=== PATIENT | female | born 1950 | race African-American/Black ===

== ENCOUNTER 2017-03-28 13:00 | Emergency (ER) | payer MEDICAID, OTHER ==
[~2017-03-28] VITALS: Ht 165.1 cm; Wt 49.9 kg
[~2017-03-28 13:00] MED LIST: AUGMENTIN 875-1 EAC1 ORAL; NKM; TENORMIN25 MG ORAL
[2017-03-28] MEDS ORDERED: Albuterol ud Inhalation HHN ONE (14:00)
[2017-03-28] MEDS ORDERED: PredniSONE 20mg tab ORAL ONE (14:00)
[2017-03-28 14:01] LABS: BASOPHILS % (AUTO) 1.5 % (0.0-2.0); EOSINOPHILS % (AUTO) 5.3 % (0.0-3.0); LYMPHOCYTES % (AUTO) 17.1 % (20.0-45.0); MEAN CORPUSCULAR HGB CONC 30.7 G/DL (32.0-36.0); MEAN CORPUSCULAR VOLUME 88 FL (80-99); MEAN PLATELET VOLUME 8.5 FL (6.5-10.1); MONOCYTES % (AUTO) 11.6 % (1.0-10.0); NEUTROPHILS % (AUTO) 64.6 % (45.0-75.0); PLATELET COUNT 121 K/UL (150-450); RED CELL DISTRIBUTION WIDTH 21.3 % (11.6-14.8); WHITE BLOOD COUNT 9.4 K/UL (4.8-10.8)
[2017-03-28 14:07] LABS: TROPONIN I < 0.30 ng/mL (<=0.30)
[2017-03-28 14:08] VITALS: BP 173/96
[2017-03-28 14:10] LABS: ALBUMIN/GLOBULIN RATIO 0.7 (1.0-2.7); CALCIUM 8.6 mg/dL (8.6-10.2); CREATININE 1.2 mg/dL (0.5-0.9); GLOMERULAR FILTRATION RATE 54.9 mL/min (>60); POTASSIUM 3.6 mEQ/L (3.4-4.9)
[2017-03-28] MEDS ORDERED: HYDROCHLOROTHIA50 MG ORAL (14:59)
--- NOTE | 2017-03-28 15:22 | Emergency Room Report ---
History of Present Illness General Chief Complaint: Dyspnea/Respdistress Source: Patient, EMS Present Illness HPI This patient presents with shortness of breath for the past few days. She has a history of COPD. She denies fever or chills. She denies nausea or vomiting. She denies chest pain. She denies abdominal pain. She states that this feels similar to previous COPD exacerbations. Allergies: Coded Allergies: CODEINE (Verified Allergy, Mild, NOSE BLEED, 04/02/10) Patient History Past Medical History: see triage record, HTN, COPD Social History: Reports: smoking, Denies: alcohol use, drug use Reviewed Nursing Documentation: PMH: Agreed, PSxH: Agreed Nursing Documentation-PMH Past Medical History: No History, Except For Hx Hypertension: Yes Hx Asthma: No - MRSA Hx COPD: Yes Review of Systems All Other Systems: negative except mentioned in HPI Physical Exam Vital Signs Date Time Temp Pulse Resp B/P Pulse Ox O2 Delivery O2 Flow Rate FiO2 03/28/17 12:55 98.2 87 18 201/131 82 Room Air 03/28/17 13:41 2.0 03/28/17 14:05 28 Sp02 EP Interpretation: reviewed, normal General Appearance: no apparent distress, alert, GCS 15, non-toxic Head: normocephalic, atraumatic Eyes: bilateral eye PERRL, bilateral eye normal inspection ENT: hearing grossly normal, normal pharynx, no angioedema, normal voice Neck: full range of motion, supple/symm/no masses Respiratory: chest non-tender, no respiratory distress, no retraction, no accessory muscle use, speaking full sentences, wheezing, inspiration Cardiovascular #1: regular rate, rhythm, no edema Gastrointestinal: normal bowel sounds, non tender, soft, non-distended, no guarding, no rebound Rectal: deferred Musculoskeletal: back normal, gait/station normal, normal range of motion, non- tender Neurologic: alert, oriented x3, responsive, motor strength/tone normal, sensory intact, speech normal Psychiatric: judgement/insight normal, memory normal, mood/affect normal, no suicidal/homicidal ideation Skin: normal color, no rash, warm/dry, well hydrated Medical Decision Making Diagnostic Impression: Primary Impression: COPD exacerbation ER Course This patient presents with COPD exacerbation. She has wheezing on physical exam. She was given albuterol and Atrovent nebulizer treatments and prednisone. I also gave a dose of antibiotics. There is no evidence of pneumonia. The patient is frail and elderly and continues to have wheezing, so she'll be admitted for further evaluation and pulmonary hygiene. The patient is transferred to [facility] the request of her insurance company. Labs Test 03/28/17 13:20 White Blood Count 9.4 K/UL (4.8-10.8) Red Blood Count 4.40 M/UL (4.20-5.40) Hemoglobin 11.9 G/DL (12.0-16.0) Hematocrit 38.6 % (37.0-47.0) Mean Corpuscular Volume 88 FL (80-99) Mean Corpuscular Hemoglobin 27.0 PG (27.0-31.0) Mean Corpuscular Hemoglobin Concent 30.7 G/DL (32.0-36.0) Red Cell Distribution Width 21.3 % (11.6-14.8) Platelet Count 121 K/UL (150-450) Mean Platelet Volume 8.5 FL (6.5-10.1) Neutrophils (%) (Auto) 64.6 % (45.0-75.0) Lymphocytes (%) (Auto) 17.1 % (20.0-45.0) Monocytes (%) (Auto) 11.6 % (1.0-10.0) Eosinophils (%) (Auto) 5.3 % (0.0-3.0) Basophils (%) (Auto) 1.5 % (0.0-2.0) Sodium Level 133 mEQ/L (135-145) Potassium Level 3.6 mEQ/L (3.4-4.9) Chloride Level 95 mEQ/L (98-107) Carbon Dioxide Level 26 mEQ/L (20-30) Anion Gap 12 (5-15) Blood Urea Nitrogen 11 mg/dL (7-23) Creatinine 1.2 mg/dL (0.5-0.9) Estimat Glomerular Filtration Rate 54.9 mL/min (>60) Glucose Level 125 mg/dL (74-106) Calcium Level 8.6 mg/dL (8.6-10.2) Total Bilirubin 0.5 mg/dL (0.0-1.2) Aspartate Amino Transf (AST/SGOT) 60 U/L (5-40) Alanine Aminotransferase (ALT/SGPT) 23 U/L (3-33) Alkaline Phosphatase 70 U/L (35-104) Troponin I < 0.30 ng/mL (<=0.30) Total Protein 9.0 g/dL (6.6-8.7) Albumin 3.8 g/dL (3.5-5.2) Globulin 5.2 g/dL Albumin/Globulin Ratio 0.7 (1.0-2.7) EKG Diagnostic Results Rate: normal Rhythm: NSR ST Segments: no acute changes Rhythm Strip Diag. Results EP Interpretation: yes Rate: 90's Rhythm: NSR, no PVC's, no ectopy Chest X-Ray Diagnostic Results Chest X-Ray Diagnostic Results : # of Views/Limited/Complete: 1 View Indication: Shortness of Breath EP Interpretation: No Interpretation: no consolidation, no effusion, no pneumothorax, no acute cardiopulmonary disease Impression: No acute disease Interpreting ER Provider: Huong Last Vital Signs Date Time Temp Pulse Resp B/P Pulse Ox O2 Delivery O2 Flow Rate FiO2 03/28/17 14:41 83 25 100 Nasal Cannula 2.0 28 03/28/17 14:08 98.2 173/96 Disposition: XFER SHT-TRM HOSP Condition: Stable Referrals: [facility],REFERRING (PCP) KATIA HOBSON D.O. Mar 28, 2017 15:22
[2017-03-28] MEDS ORDERED: Ipratropium 0.02% Inh Soln 2.5ml UD HHN ONE (15:30)
[2017-03-28] MEDS: Albuterol ud Inhalation HHN ONE ×2 (15:36→15:38)
[2017-03-28 16:32] VITALS: BP 162/86
[2017-03-28 17:04] VITALS: BP 134/72
--- NOTE | 2017-03-29 08:22 | Diagnostic Imaging Report ---
Indications: Shortness of breath Technique: Portable AP chest Findings: Comparison: 04/03/2010 Cardiac silhouette remains normal in size. Pulmonary vasculature remains within normal limits. Right upper lobe linear density compatible with parenchymal scarring unchanged. Lungs and pleura remain otherwise clear. IMPRESSION: No evidence of acute disease, unchanged Stable chronic changes as described
--- NOTE | 2017-04-02 17:37 | Cardiology Report ---
APPROVED REPORT EKG Measurement Heart [id number] Poor data quality, interpretation may be adversely affected Normal sinus rhythm Possible Left atrial enlargement Septal infarct, age undetermined Abnormal ECG
== END 2017-03-28 17:06 | disposition short-term general hospital (02) ==
LOC: EDBD 13:00 → EMR 13:27
DX: J44.1 Chronic obstructive pulmonary disease with (acute) exacerbation (principal); I10 Essential (primary) hypertension
CPT/HCPCS: 36415; 71010; 80053; 84484; 85025; 87081; 93005; 94640; 96374

== ENCOUNTER 2017-07-12 16:05 | Emergency (ER) | payer OTHER ==
[~2017-07-12] VITALS: Ht 162.6 cm; Wt 49.9 kg
[~2017-07-12 16:05] MED LIST changes: +HYDROCHLOROTHIA50 MG ORAL
[2017-07-12] MEDS ORDERED: Promethazine Plain 6.25mg/5ml ORAL STA (16:15)
[2017-07-12] MEDS ORDERED: Albuterol ud Inhalation HHN ONE (16:15)
[2017-07-12] MEDS ORDERED: HYDROCHLOROTHIA50 MG ORAL (16:20)
[2017-07-12] MEDS ORDERED: VENTOLIN HFA18 GM INH (16:20)
[2017-07-12 16:25] VITALS: BP 179/105
--- NOTE | 2017-07-12 16:30 | Emergency Room Report ---
History of Present Illness General Chief Complaint: Upper Respiratory Illness Source: Patient, Medical Record Present Illness HPI 66YOF walk-in with 2 months of dry cough Quit smoking 6 months ago History of COPD - doesnt have any meds, ran out of inhaler Denies fever/chills, chest pain, SOB Also requesting refill of HTN med - takes HCTZ 50mg daily - hasnt taken in months Allergies: Coded Allergies: CODEINE (Verified Allergy, Mild, NOSE BLEED, 04/02/10) Patient History Past Medical History: HTN, COPD Past Surgical History: none Pertinent Family History: none Social History: Reports: smoking Now: No Immunizations: UTD Reviewed Nursing Documentation: PMH: Agreed, PSxH: Agreed Nursing Documentation-PMH Hx Hypertension: Yes Hx Asthma: No - MRSA Hx COPD: Yes Review of Systems All Other Systems: negative except mentioned in HPI Physical Exam Vital Signs Date Time Temp Pulse Resp B/P (MAP) Pulse Ox O2 Delivery O2 Flow Rate FiO2 07/12/17 16:07 98.2 83 18 179/105 97 Room Air Sp02 EP Interpretation: reviewed, normal General Appearance: normal inspection, well appearing, no apparent distress, alert, GCS 15, non-toxic, other - Well appearing, no distress Head: normocephalic, atraumatic Eyes: bilateral eye PERRL, bilateral eye EOMI ENT: normal ENT inspection, hearing grossly normal, normal voice Neck: normal inspection, full range of motion, supple, no bony tend Respiratory: normal inspection, lungs clear, normal breath sounds, no respiratory distress, no retraction, no accessory muscle use, no wheezing, speaking full sentences Cardiovascular #1: regular rate, rhythm, no edema Gastrointestinal: normal inspection, normal bowel sounds, non tender, soft, no guarding, no hernia Genitourinary: no CVA tenderness Musculoskeletal: normal inspection, back normal, normal range of motion, Dionna' s Sign negative Neurologic: normal inspection, alert, oriented x3, responsive, date night caregiver III-XII nml as tested, speech normal Psychiatric: normal inspection, judgement/insight normal, mood/affect normal Skin: normal inspection, normal color, no rash Medical Decision Making Diagnostic Impression: Primary Impression: Medication refill Additional Impressions: Cough Hypertension Qualified Codes: I10 - Essential (primary) hypertension ER Course HTN - Elevated BP, asymptomatic here. - Given dose of her known HCTZ 50mg and refill of Med Cough - VSS. Afebrile. - Doubt COPD exac given well appearance, not hypoxic - Given 1 neb and cough syrup in ED with improvement - Rx ventolin refilled DC home Well appearing, normal vitals - doubt PNA or sepsis requiring additional lab workup, admission at this time Will f/up with PMD to recheck BP in 2-3 days Chest X-Ray Diagnostic Results Chest X-Ray Diagnostic Results : Chest X-Ray Ordered: Yes # of Views/Limited/Complete: 1 View Indication: Other - cough EP Interpretation: Yes Interpretation: no consolidation, no effusion, no pneumothorax, no acute cardiopulmonary disease Impression: No acute disease Electronically Signed by: Dr Sada Nuñez MD Last Vital Signs Date Time Temp Pulse Resp B/P (MAP) Pulse Ox O2 Delivery O2 Flow Rate FiO2 07/12/17 16:25 98.2 83 18 179/105 97 Room Air Status: improved Disposition: HOME, SELF-CARE Condition: Improved Scripts Albuterol Sulfate (VENTOLIN HFA) 18 Gm Hfa.aer.ad 1 PUFF INH EVERY 6 HOURS, #18 GM 0 Refills Prov: SADA NUÑEZ M.D. 07/12/17 Hydrochlorothiazide* (HYDROCHLOROTHIAZIDE*) 50 Mg Tablet 50 MG ORAL DAILY for 30 Days, #30 TAB Prov: SADA NUÑEZ M.D. 07/12/17 Patient Instructions: Upper Respiratory Infection, Adult Additional Instructions: - Take BP medication daily starting TOMORROW/ SATURDAY. You received the first dose in the ED. - Follow up with your primary doctor to check your blood pressure - Use ventolin inhlaer as needed for cough, chest tightness SADA NUÑEZ M.D. Jul 12, 2017 16:30
[2017-07-12 17:25] VITALS: BP 161/91
[2017-07-12 17:27] VITALS: BP 161/91
--- NOTE | 2017-07-13 08:42 | Diagnostic Imaging Report ---
Indication: SOB Technique: One view of the chest Comparison: 03/28/2017 Findings: Lungs and pleural spaces are clear. The heart size is normal. Aorta is tortuous. No significant change Impression: No acute process
== END 2017-07-12 17:27 | disposition home or self-care (01) ==
LOC: EMR 16:25
DX: Z76.0 Encounter for issue of repeat prescription (principal); J44.9 Chronic obstructive pulmonary disease, unspecified; Z88.6 Allergy status to analgesic agent; I10 Essential (primary) hypertension
CPT/HCPCS: 71010; 94640; 94664; 99284

== ENCOUNTER 2018-02-15 00:59 | Emergency (ER) | payer MEDICARE, OTHER ==
[~2018-02-15] VITALS: Ht 162.6 cm; Wt 49.9 kg
[~2018-02-15 00:59] MED LIST changes: +VENTOLIN HFA18 GM INH
[2018-02-15] MEDS ORDERED: Morphine Sulfate 4mg/ml Inj IM ONE (01:45)
[2018-02-15] MEDS ORDERED: VALIUM5 MG ORAL (01:58)
[2018-02-15] MEDS ORDERED: HYDROCODON-ACE1 EA15 ORAL (01:58)
--- NOTE | 2018-02-15 01:58 | Emergency Room Report ---
History of Present Illness General Chief Complaint: Neck Pain Source: Patient Present Illness HPI This is a 67-year-old female with history of high blood pressure. She presents with chief complaint of neck pain. His been ongoing for week but worse tonight. She has not take any medication for it because her insurance card just kicked in. She has been to multiple places for this. Last week she was at [facility]. Lab work was unremarkable. Has not had an MRI. Pain is to the left neck area. She can turn to the right. Pain is 10 out of 10. Worse with movement. Better with rest. No focal deficit. Allergies: Coded Allergies: CODEINE (Verified Allergy, Mild, NOSE BLEED, 02/15/18) Patient History Past Medical History: see triage record, old chart reviewed, HTN Past Surgical History: other Pertinent Family History: none Social History: Denies: drug use Last Menstrual Period: n/a Now: No Immunizations: other Reviewed Nursing Documentation: PMH: Agreed; PSxH: Agreed Nursing Documentation-PMH Hx Hypertension: Yes Hx Asthma: No - MRSA Hx COPD: Yes Review of Systems Eye: Denies: eye pain, blurred vision ENT: Denies: ear pain, nose congestion, throat swelling Respiratory: Denies: cough, shortness of breath Cardiovascular: Denies: chest pain, palpitations Gastrointestinal: Denies: abdominal pain, diarrhea, nausea, vomiting Musculoskeletal: Denies: back pain, joint pain Skin: Denies: rash Neurological: Denies: headache, numbness Endocrine: Denies: increased thirst, increased urine Hematologic/Lymphatic: Denies: easy bruising All Other Systems: negative except mentioned in HPI Physical Exam Vital Signs Date Time Temp Pulse Resp B/P (MAP) Pulse Ox O2 Delivery O2 Flow Rate FiO2 02/15/18 01:04 98.2 71 13 173/91 95 Room Air 98.2 vitals with hypertension Sp02 EP Interpretation: reviewed, normal General Appearance: no apparent distress, alert, thin Head: normocephalic, atraumatic Eyes: bilateral eye PERRL, bilateral eye EOMI ENT: hearing grossly normal, normal pharynx Neck: no meningismus, tender - tender to the left trapezius muscle Respiratory: chest non-tender, lungs clear, normal breath sounds Cardiovascular #1: regular rate, rhythm, no murmur Gastrointestinal: normal bowel sounds, non tender, no mass, no organomegaly, no bruit, non-distended Musculoskeletal: back normal, gait/station normal, normal range of motion Psychiatric: mood/affect normal Skin: warm/dry Medical Decision Making Diagnostic Impression: Primary Impression: Torticollis, acute Additional Impression: Hypertension Qualified Codes: I10 - Essential (primary) hypertension ER Course Patient presents with acute torticollis. No evidence of any dissection. This has been ongoing for a month now. We'll discharge home with muscle relaxer. No evidence of cauda equina syndrome, epidural abscess or neoplastic process. Recommend outpatient MRI to see for stenosis or pinched nerve. Last Vital Signs Date Time Temp Pulse Resp B/P (MAP) Pulse Ox O2 Delivery O2 Flow Rate FiO2 02/15/18 01:04 98.2 71 13 173/91 95 Room Air 98.2 Status: improved Disposition: HOME, SELF-CARE Condition: Stable Scripts Diazepam* (VALIUM*) 5 Mg Tablet 5 MG ORAL TID PRN for spasm, #20 TAB 0 Refills Prov: ROSALES ANDERSON M.D. 02/15/18 Hydrocodone/Acetaminophen 5-325* (HYDROCODONE/ACETAMINOPHEN 5-325*) 1 Each Tablet 1 TAB ORAL Q6H PRN for For Pain, #20 TAB 0 Refills Prov: ROSALES ANDERSON M.D. 02/15/18 Additional Instructions: Follow-up with your doctor within a week. Recommend MRI of his neck. Return if symptom worsen. Take your blood pressure medication. ROSALES ANDERSON M.D. Feb 15, 2018 01:58
[2018-02-15] MEDS ORDERED: Norco 5mg/325mg tab ORAL ONE (02:00)
[2018-02-15] MEDS ORDERED: Albuterol ud Inhalation HHN ONE (02:00)
[2018-02-15 02:42] VITALS: BP 149/83
[2018-02-15 03:16] VITALS: BP 149/83
== END 2018-02-15 04:30 | disposition home or self-care (01) ==
LOC: EMR 04:05
DX: M43.6 Torticollis (principal); I10 Essential (primary) hypertension; J44.9 Chronic obstructive pulmonary disease, unspecified; Z88.5 Allergy status to narcotic agent
CPT/HCPCS: 80307; 94640; 94664; 96372; 99284

== ENCOUNTER 2018-02-27 17:45 | Emergency (ER) | payer MEDICARE, OTHER ==
[~2018-02-27] VITALS: Ht 162.6 cm; Wt 63.5 kg
[~2018-02-27 17:45] MED LIST changes: +HYDROCODON-ACE1 EA15 ORAL; +VALIUM5 MG ORAL
[2018-02-27 17:53] VITALS: BP 91/57
--- NOTE | 2018-02-27 18:30 | Emergency Room Report ---
History of Present Illness General Chief Complaint: Abdominal Pain Source: Patient, EMS (RitikadreaTyrone ) Present Illness HPI Patient presents with complaints of left-sided abdominal pain and lower abdominal pain ongoing for the past one day Denies any vomiting or diarrhea patient was recently given medications for neck sprain At this time denies any chest pain or shortness of breath denies any dysuria or frequency pain is 5 out of 10 sharp localized to the left upper and lower abdominal region denies any change with position (Tyrone Pathak DO) Allergies: Coded Allergies: MORPHINE (Verified Allergy, Severe, 02/15/18) swelling of face CODEINE (Verified Allergy, Mild, NOSE BLEED, 02/15/18) Patient History Past Medical History: see triage record Pertinent Family History: none Reviewed Nursing Documentation: PSxH: Agreed (Tyrone Pathak DO) Nursing Documentation-PMH Past Medical History: No History, Except For Hx Hypertension: Yes Hx Asthma: Yes Hx COPD: Yes (Tyrone Pathak DO) Review of Systems All Other Systems: negative except mentioned in HPI (CristopherTyrone cosby DO) Physical Exam Vital Signs Date Time Temp Pulse Resp B/P (MAP) Pulse Ox O2 Delivery O2 Flow Rate FiO2 02/27/18 17:39 98.2 70 16 111/72 99 Room Air 98.2 Sp02 EP Interpretation: reviewed, normal General Appearance: well appearing, no apparent distress Head: normocephalic, atraumatic Eyes: bilateral eye PERRL, bilateral eye EOMI ENT: hearing grossly normal, normal pharynx, TMs + canals normal, uvula midline , other - adenturelous Neck: full range of motion, supple, no meningismus, no bony tend Respiratory: lungs clear, normal breath sounds, no rhonchi, no respiratory distress, no retraction, no accessory muscle use Cardiovascular #1: normal peripheral pulses, regular rate, rhythm, no edema, no gallop, no JVD, no murmur Gastrointestinal: normal bowel sounds, non tender - On palpation however subjectively points to left mid and lower abdomen, soft, no mass, no organomegaly, non-distended, no guarding, no hernia, no pulsatile mass, no rebound Genitourinary: no CVA tenderness Musculoskeletal: normal inspection Neurologic: oriented x3, responsive, geography instructor III-XII nml as tested, motor strength/ tone normal, sensory intact Psychiatric: mood/affect normal Skin: normal color, no rash, warm/dry, palpation normal Lymphatic: normal inspection, no adenopathy (Tyrone Pathak DO) Medical Decision Making Diagnostic Impression: Primary Impression: Leukocytosis Qualified Codes: D72.829 - Elevated white blood cell count, unspecified Additional Impressions: Cholecystitis, acute with cholelithiasis Qualified Codes: K80.00 - Calculus of gallbladder with acute cholecystitis without obstruction Acute gallstone pancreatitis ER Course With the history exam and presentation, multiple differentials considered, including but not limited to appendicitis, gastritis, cholecystitis, diverticulitis Patient CT imaging did not show any obvious acute pathology gallbladder did appear contracted with multiple stones however no obvious secondary signs of cholecystitis patient white blood cell count however is back and elevated Patient has had previous history of cocaine abuse which could contribute to this however other infectious pathology need to be entertained Patient provided with further hydration and requires admission Labs Test 02/27/18 19:39 White Blood Count 28.5 K/UL (4.8-10.8) Red Blood Count 3.89 M/UL (4.20-5.40) Hemoglobin 9.4 G/DL (12.0-16.0) Hematocrit 31.3 % (37.0-47.0) Mean Corpuscular Volume 81 FL (80-99) Mean Corpuscular Hemoglobin 24.1 PG (27.0-31.0) Mean Corpuscular Hemoglobin Concent 29.9 G/DL (32.0-36.0) Red Cell Distribution Width 19.6 % (11.6-14.8) Platelet Count 375 K/UL (150-450) Mean Platelet Volume 7.0 FL (6.5-10.1) Neutrophils (%) (Auto) % (45.0-75.0) Lymphocytes (%) (Auto) % (20.0-45.0) Monocytes (%) (Auto) % (1.0-10.0) Eosinophils (%) (Auto) % (0.0-3.0) Basophils (%) (Auto) % (0.0-2.0) Differential Total Cells Counted 100 Neutrophils % (Manual) 74 % (45-75) Lymphocytes % (Manual) 11 % (20-45) Monocytes % (Manual) 8 % (1-10) Eosinophils % (Manual) 0 % (0-3) Basophils % (Manual) 1 % (0-2) Band Neutrophils 6 % (0-8) Platelet Estimate Adequate Platelet Morphology Normal Polychromasia 1+ Hypochromasia 1+ Anisocytosis 3+ Microcytosis 1+ Sodium Level 140 MMOL/L (136-145) Potassium Level 4.0 MMOL/L (3.5-5.1) Chloride Level 101 MMOL/L (98-107) Carbon Dioxide Level 22 MMOL/L (21-32) Anion Gap 17 mmol/L (5-15) Blood Urea Nitrogen 48 mg/dL (7-18) Creatinine 2.7 MG/DL (0.55-1.30) Estimat Glomerular Filtration Rate 21.5 mL/min (>60) Glucose Level 66 MG/DL (74-106) Calcium Level 8.9 MG/DL (8.5-10.1) Total Bilirubin 0.5 MG/DL (0.2-1.0) Aspartate Amino Transf (AST/SGOT) 231 U/L (15-37) Alanine Aminotransferase (ALT/SGPT) 115 U/L (12-78) Alkaline Phosphatase 87 U/L (46-116) Total Protein 8.5 G/DL (6.4-8.2) Albumin 3.6 G/DL (3.4-5.0) Globulin 4.9 g/dL Albumin/Globulin Ratio 0.7 (1.0-2.7) Lipase 724 U/L (73-393) (Tyrone Pathak DO) ER Course Patient signout to me. She presents with abdominal pain and had gallstone pancreatitis with double bubble cholecystitis. She was to be admitted here that now will be transferred based on insurance. I spoke with Dr. Veronica who accepted patient for transfer to [facility]. Patient is stable for transfer. (ROSALES ANDERSON M.D.) Rhythm Strip Diag. Results EP Interpretation: yes Rate: 88 Rhythm: NSR, no PVC's, no ectopy (Tyrone Pathak DO) CT/MRI/US Diagnostic Results CT/MRI/US Diagnostic Results : Impression CT abdomen pelvis: Contracted gallbladder, multiple gallstones no obvious edema no other acute pathology (Tyrone Pathak DO) Last Vital Signs Date Time Temp Pulse Resp B/P (MAP) Pulse Ox O2 Delivery O2 Flow Rate FiO2 02/27/18 17:53 98.2 68 28 91/57 97 Room Air 98.2 Status: improved (Tyrone Pathak DO) Disposition: XFER SHT-TRM HOSP Condition: Stable Tyrone Pathak DO Feb 27, 2018 18:30 ROSALES ANDERSON M.D. Feb 27, 2018 21:35
[2018-02-27 20:06] LABS: HEMATOCRIT 31.3 % (37.0-47.0); HEMOGLOBIN 9.4 G/DL (12.0-16.0); MEAN CORPUSCULAR VOLUME 81 FL (80-99); PLATELET COUNT 375 K/UL (150-450); RED BLOOD COUNT 3.89 M/UL (4.20-5.40); RED CELL DISTRIBUTION WIDTH 19.6 % (11.6-14.8)
[2018-02-27 20:38] LABS: WHITE BLOOD COUNT 28.5 K/UL (4.8-10.8)
[2018-02-27 20:43] LABS: ANION GAP 17 mmol/L (5-15); BLOOD UREA NITROGEN 48 mg/dL (7-18); CALCIUM 8.9 MG/DL (8.5-10.1); CARBON DIOXIDE 22 MMOL/L (21-32); CHLORIDE 101 MMOL/L (98-107); CREATININE 2.7 MG/DL (0.55-1.30); SODIUM 140 MMOL/L (136-145)
[2018-02-27] MEDS ORDERED: NS 1000ml 1,900 ML IVLG ONE (20:45)
[2018-02-27] MEDS ORDERED: cefTRIAXone 1 GM in NS 55 ML IVPB ONE (20:45)
[2018-02-27 20:48] LABS: ALANINE AMINOTRANSFERASE 115 U/L (12-78); ALBUMIN 3.6 G/DL (3.4-5.0); ALBUMIN/GLOBULIN RATIO 0.7 (1.0-2.7); ALKALINE PHOSPHATASE 87 U/L (46-116); ASPARTATE AMINO TRANSFERASE 231 U/L (15-37); BILIRUBIN,TOTAL 0.5 MG/DL (0.2-1.0)
[2018-02-27 21:37] VITALS: BP 110/70
[2018-02-27 22:54] VITALS: BP 110/70
--- NOTE | 2018-02-28 09:13 | Diagnostic Imaging Report ---
Indication: Left-sided abdominal pain and lower abdominal pain over the past day Technique: Spiral acquisitions obtained through the abdomen and pelvis. No oral contrast utilized, per emergency room physician request No IV contrast utilized, per referring physician request.. Multiplanar reconstructions were generated. Total dose length product 494.03 mGycm. CTDIvol(s) 10.21 mGy. Dose reduction achieved using automated exposure control Comparison: None Findings: There is considerable retained colonic stool, particularly in the ascending colon, hepatic flexure, and proximal transverse colon. Descending colon, cecum, and hepatic flexure are mildly distended. No evidence of diverticulosis. The appendix is not definitely identified, but no findings to suggest acute appendicitis are evident. Some small bowel loops are mildly prominent and fluid-filled, but this appears diffuse, extending to the level of the terminal ileum. No free or loculated intraperitoneal air or fluid. No definite mural gas. The distal esophagus is unremarkable. The stomach is mildly distended. Gallbladder contains gallstones. It is nondistended. The common bile duct is dilated, measuring 12 mm in diameter. No definite downstream obstructive lesion demonstrated. The liver, pancreas, spleen, adrenals, kidneys are unremarkable. No retroperitoneal or mesenteric mass or adenopathy. No pelvic adenopathy. The uterus is diffusely enlarged, demonstrates multiple lobulated masses with some calcifications. The included lung bases are clear. The bones demonstrate degenerative spondylosis changes. Impression: Mildly dilated proximal colon, with diffuse retained colonic stool, likely on a functional basis with constipation Mildly thick-walled fluid-filled prominent small bowel loops, could indicate enteritis changes Cholelithiasis. Extrahepatic biliary ductal dilatation without evidence of downstream obstructive lesion. Correlate with liver function tests Enlarged fibroid uterus Degenerative spondylosis changes incidentally noted This agrees with the preliminary interpretation provided overnight by [facility] teleradiology service. The CT scanner at [facility] is accredited by the [employer] and the scans are performed using protocols designed to limit radiation exposure to as low as reasonably achievable to attain images of sufficient resolution adequate for diagnostic evaluation.
--- NOTE | 2018-02-28 12:10 | Diagnostic Imaging Report ---
Indication: Heart is upper Technique: One view of the chest Comparison: 07/12/2017 Findings: Lungs and pleural spaces are clear. Heart size is normal. No significant interim change Impression: No acute process
--- NOTE | 2018-02-28 14:29 | Diagnostic Imaging Report ---
Indication: Abdominal pain Technique: Rouse-scale and duplex images of the upper abdomen were obtained Comparison: 04/04/2010 Findings: Gallbladder demonstrates gallstones, also previously reported. It is nondistended. Equivocal gallbladder wall thickening, measuring up to 6 mm in thickness, but this could be an artifact of under distention.. No pericholecystic fluid. Common bile duct measures 12 mm in diameter. No intrahepatic biliary ductal dilatation. Liver demonstrates normal echogenicity, no focal abnormality. Portal vein and hepatic veins are patent. Pancreas is unremarkable. The spleen is obscured by the stomach. Left kidney measures 11.3 cm in length. Right kidney measures 9.2 cm length. Both kidneys demonstrate normal echogenicity. There is no hydronephrosis. No focal abnormality . Non-aneurysmal abdominal aorta . Impression: Cholelithiasis. Apparent gallbladder wall thickening is probably an artifact of under distention, but does raise possibility of acute cholecystitis. Consider nuclear medicine hepatobiliary scan if there is high clinical suspicion Dilated extrahepatic bile ducts. Also evident on CT scan of earlier the same day as well as on previous studies. Correlate with liver function tests Note inability to visualize the spleen. This appears normal on recent CT, however.
== END 2018-02-27 22:56 | disposition short-term general hospital (02) ==
LOC: EDBD 17:45 → EMR 18:55
DX: K80.00 Calculus of gallbladder with acute cholecystitis without obstruction (principal); D72.829 Elevated white blood cell count, unspecified; J44.9 Chronic obstructive pulmonary disease, unspecified; I10 Essential (primary) hypertension
CPT/HCPCS: 36415; 71045; 74176; 76700; 80053; 83690; 85007; 85025; 96365; 96374; 99284; J0696

== ENCOUNTER 2018-07-12 08:45 | Emergency (ER) | payer MEDICARE, OTHER ==
[~2018-07-12] VITALS: Ht 162.6 cm; Wt 52.2 kg
[2018-07-12 09:10] VITALS: BP 216/125
[2018-07-12 09:47] LABS: ANION GAP 7 mmol/L (5-15); BLOOD UREA NITROGEN 9 mg/dL (7-18); CALCIUM 8.6 MG/DL (8.5-10.1); CARBON DIOXIDE 28 MMOL/L (21-32); CHLORIDE 99 MMOL/L (98-107); CREATININE 1.2 MG/DL (0.55-1.30); SODIUM 134 MMOL/L (136-145)
[2018-07-12 09:50] LABS: BASOPHILS % (AUTO) 1.7 % (0.0-2.0); EOSINOPHILS % (AUTO) 6.6 % (0.0-3.0); HEMOGLOBIN 9.9 G/DL (12.0-16.0); LYMPHOCYTES % (AUTO) 14.2 % (20.0-45.0); MEAN CORPUSCULAR VOLUME 90 FL (80-99); MONOCYTES % (AUTO) 5.6 % (1.0-10.0); NEUTROPHILS % (AUTO) 71.9 % (45.0-75.0); PLATELET COUNT 348 K/UL (150-450); RED BLOOD COUNT 3.44 M/UL (4.20-5.40); RED CELL DISTRIBUTION WIDTH 24.1 % (11.6-14.8); WHITE BLOOD COUNT 7.2 K/UL (4.8-10.8)
[2018-07-12 09:52] LABS: ALANINE AMINOTRANSFERASE 67 U/L (12-78); ALBUMIN 4.3 G/DL (3.4-5.0); ALBUMIN/GLOBULIN RATIO 0.7 (1.0-2.7); ALKALINE PHOSPHATASE 70 U/L (46-116); ASPARTATE AMINO TRANSFERASE 105 U/L (15-37); BILIRUBIN,TOTAL 0.3 MG/DL (0.2-1.0); CREATINE KINASE 627 U/L (26-308)
[2018-07-12] MEDS ORDERED: oxyCODONE HCL/Acetaminophen 5/325mg ORAL ONE (10:15)
[2018-07-12] MEDS ORDERED: cloNIDine 0.2mg Tab ORAL ONE (10:15)
--- NOTE | 2018-07-12 10:15 | Diagnostic Imaging Report ---
EXAM: XR Left Tibia and Fibula, 2 Views CLINICAL HISTORY: TRAUMA TECHNIQUE: Frontal and lateral views of the left tibia and fibula. COMPARISON: No relevant prior studies available. FINDINGS: Bones/joints: Unremarkable. No visible displaced fracture. No dislocation. No osseous erosions. Visualized joint spaces appear unremarkable. Soft tissues: Unremarkable. No radiopaque foreign body. IMPRESSION: Unremarkable left tibia and fibula x-rays.
--- NOTE | 2018-07-12 10:21 | Diagnostic Imaging Report ---
EXAM: XR Chest, 1 View CLINICAL HISTORY: TRAUMA TECHNIQUE: Frontal view of the chest. COMPARISON: Chest x-ray dated 02/27/18 FINDINGS: Lungs: Unremarkable. The lungs appear clear. No confluent pulmonary opacities. Pleural space: Unremarkable. The costophrenic angles are sharp. No visible pneumothorax. Heart: Unremarkable. No cardiomegaly. Mediastinum: Unremarkable. Bones/joints: Unremarkable. Tubes, lines and devices: EKG leads overlie the thorax. IMPRESSION: No acute findings.
--- NOTE | 2018-07-12 10:26 | Diagnostic Imaging Report ---
EXAM: XR Left Femur, 2 Views CLINICAL HISTORY: TRAUMA TECHNIQUE: Frontal and lateral views of the left femur. COMPARISON: No relevant prior studies available. FINDINGS: Bones/joints: Unremarkable. No visible displaced fracture. No dislocation. No osseous erosions. Visualized joint spaces appear unremarkable. Soft tissues: Unremarkable. IMPRESSION: Unremarkable left femur x-rays.
[2018-07-12 10:48] LABS: APPEARANCE,URINE CLEAR; BILIRUBIN, URINE NEGATIVE (NEGATIVE); COLOR,URINE PALE YELLOW; GLUCOSE, URINE (UA) NEGATIVE (NEGATIVE); KETONES,URINE NEGATIVE (NEGATIVE); LEUKOCYTE ESTERASE ,URINE NEGATIVE (NEGATIVE); NITRITE,URINE NEGATIVE (NEGATIVE); PH,URINE 8 (4.5-8.0); PROTEIN,URINE 2+ (NEGATIVE); UROBILINOGEN,URINE NORMAL MG/DL (0.0-1.0)
[2018-07-12 11:00] VITALS: BP 183/96
--- NOTE | 2018-07-12 11:36 | Diagnostic Imaging Report ---
EXAM: CT Head Without Intravenous Contrast CLINICAL HISTORY: Headache TECHNIQUE: Axial computed tomography images of the head/brain without intravenous contrast. CTDI is 70.53 mGy and DLP is 1376 mGy-cm. One or more of the following dose reduction techniques were used: automated exposure control, adjustment of the mA and/or kV according to patient size, use of iterative reconstruction technique. COMPARISON: No relevant prior studies available. FINDINGS: Brain: Incidental note of microcalcifications in bilateral basal ganglia. No evidence of acute intracranial hemorrhage. No significant white matter disease. No edema. No mass effect or midline shift. Coarse calcifications along the anterior falx. Ventricles: Unremarkable. No ventriculomegaly. Bones/joints: Unremarkable. No depressed skull fracture. Soft tissues: Unremarkable. Sinuses: Unremarkable as visualized. No acute sinusitis. Mastoid air cells: Unremarkable as visualized. No mastoid effusion. IMPRESSION: No acute intracranial findings.
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
[2018-07-12 12:43] VITALS: BP 130/89
== END 2018-07-12 12:47 | disposition short-term general hospital (02) ==
LOC: EMR 09:21 → EDBEDREQ 10:24 → EMR 12:47
DX: I16.0 Hypertensive urgency (principal); F14.10 Cocaine abuse, uncomplicated; S80.02XA Contusion of left knee, initial encounter; W01.0XXA Fall on same level from slipping, tripping and stumbling without subsequent striking against object, initial encounter; Y93.89 Activity, other specified; Y92.480 Sidewalk as the place of occurrence of the external cause; J45.909 Unspecified asthma, uncomplicated; J44.9 Chronic obstructive pulmonary disease, unspecified
CPT/HCPCS: 36415; 70450; 71045; 73552; 73590; 80053; 80307; 81003; 82550; 84484; 85025; 93005; 96361; 96374; 96376; 99285; G0480; J0360; 80329

== ENCOUNTER 2019-10-31 21:26 | Emergency (ER) | payer MEDICARE, OTHER ==
[~2019-10-31] VITALS: Ht 172.7 cm; Wt 72.6 kg
--- NOTE | 2019-10-31 21:40 | NUR ---
ED Nurse Note: ambulated to ed with c/o sob x 4 days. pt states she ran out of rescue meds. reports increase work of breathing when ambulating. reports weakness and dizziness. pt ao4. received pt with spo2 77%. placed nasal cannula 2LPM; spo2 99%. accompanied by family member. changed into gown, placed on monitor.
[2019-10-31] MEDS ORDERED: Solu-MEDROL 125mg Inj IVP ONE (21:45)
--- NOTE | 2019-10-31 21:45 | NUR ---
ED Nurse Note: iv access established. blood,initial lactic, blood cultures collected; sent down to lab. unable to collect urine at this time; pt refused straight cath; pt states she will provide urine when able.
[2019-10-31] MEDS: Ipratropium 0.02% Inh Soln 2.5ml UD HHN SCH ×2 (21:57→21:58)
[2019-10-31] MEDS: Albuterol ud Inhalation HHN SCH ×2 (21:57→21:58)
--- NOTE | 2019-10-31 22:00 | NUR ---
ED Nurse Note: flu swab collected; sent down to lab.
[2019-10-31 22:06] VITALS: BP 154/100
[2019-10-31 22:13] LABS: HEMATOCRIT 27.8 % (37.0-47.0); HEMOGLOBIN 7.6 G/DL (12.0-16.0); MEAN CORPUSCULAR VOLUME 78 FL (80-99); PLATELET COUNT 230 K/UL (150-450); RED BLOOD COUNT 3.55 M/UL (4.20-5.40); RED CELL DISTRIBUTION WIDTH 22.8 % (11.6-14.8); WHITE BLOOD COUNT 10.5 K/UL (4.8-10.8)
--- NOTE | 2019-10-31 22:20 | NUR ---
ED Nurse Note: medicated patient; tolerated well. rt at bedside for breathing tx
--- NOTE | 2019-10-31 22:26 | NUR ---
ED Nurse Note: imaging at bedside for cxr.
[2019-10-31 22:28] LABS: ANION GAP 7 mmol/L (5-15); BLOOD UREA NITROGEN 29 mg/dL (7-18); CALCIUM 9.3 MG/DL (8.5-10.1); CARBON DIOXIDE 32 MMOL/L (21-32); CHLORIDE 101 MMOL/L (98-107); CREATININE 1.5 MG/DL (0.55-1.30); POTASSIUM 4.4 MMOL/L (3.5-5.1); SODIUM 140 MMOL/L (136-145)
--- NOTE | 2019-10-31 22:29 | Emergency Room Report ---
History of Present Illness General Chief Complaint: Dyspnea/Respdistress Source: Patient Present Illness HPI 68-year-old female presents ED for evaluation. Brought in by complaining of shortness of breath. History of COPD. Symptoms started 4 days ago. Does not have any medications at this time. Admits to smoking. States that she does not have home oxygen tank for the last 4 months. States she feels weak. Denies fevers or chills. Denies cough. No other aggravating relieving factors. Denies any other associated symptoms Allergies: Coded Allergies: MORPHINE (Verified Allergy, Severe, 02/15/18) swelling of face CODEINE (Verified Allergy, Mild, NOSE BLEED, 02/15/18) Patient History Past Medical History: HTN, asthma, COPD Past Surgical History: none Pertinent Family History: none Social History: Reports: smoking, drug use; Denies: alcohol use Now: No Immunizations: UTD Reviewed Nursing Documentation: PMH: Agreed; PSxH: Agreed Nursing Documentation-PMH Hx Hypertension: Yes Hx Asthma: Yes Hx COPD: Yes Review of Systems All Other Systems: negative except mentioned in HPI Physical Exam Vital Signs Date Time Temp Pulse Resp B/P (MAP) Pulse Ox O2 Delivery O2 Flow Rate FiO2 10/31/ 21:35 97.5 105 10 154/100 (118) 77 Simple Mask 5.0 Sp02 EP Interpretation: reviewed, normal General Appearance: no apparent distress, alert, GCS 15, non-toxic Head: normocephalic, atraumatic Eyes: bilateral eye normal inspection, bilateral eye PERRL ENT: hearing grossly normal, normal pharynx, no angioedema, normal voice Neck: full range of motion, supple/symm/no masses Respiratory: chest non-tender, decreased breath sounds, speaking full sentences , wheezing Cardiovascular #1: regular rate, rhythm, no edema Cardiovascular #2: 2+ carotid (R), 2+ carotid (L), 2+ radial (R), 2+ radial (L) , 2+ dorsalis pedis (R), 2+ dorsalis pedis (L) Gastrointestinal: normal bowel sounds, non tender, soft, non-distended, no guarding, no rebound Rectal: deferred Genitourinary: normal inspection, no CVA tenderness Musculoskeletal: back normal, normal range of motion, gait/station normal, non- tender Neurologic: alert, motor strength/tone normal, oriented x3, sensory intact, responsive, speech normal Psychiatric: judgement/insight normal, memory normal, mood/affect normal, no suicidal/homicidal ideation Reflexes: 3+ bicep (R), 3+ bicep (L), 3+ tricep (R), 3+ tricep (L), 3+ knee (R) , 3+ knee (L) Skin: other - see nursing skin notes Lymphatic: no adenopathy Medical Decision Making Diagnostic Impression: Primary Impression: COPD exacerbation Additional Impressions: Anemia Qualified Codes: D64.9 - Anemia, unspecified Renal insufficiency Cocaine abuse ER Course Hospital Course 68-year-old F presenting to ED with SOB. h/o COPD Differential diagnoses include: Pneumonia, CHF exacerbation, pneumothorax, fluid overload Clinical course Patient placed on stretcher. On cardiac care unit nurse with stable vitals. After initial history and physical, I ordered nebulizer treatments. I ordered labs, IV fluids, EKG, chest x-ray, blood cultures, UA. Labs - no leukocytosis noted, hemoglobin 7.7, BUN/Cr elevated, lactic ok, trop 0.059, BNP mildly elevated, cocaine + CXR - hyperinflated lungs. no infiltrates EKG - NSR, no acute ischemic changes interpreted by me Given Solu-Medrol. Given IV fluids. Given antibiotics. O2 sats improved but patient will require admission Because of insurance patient will be transferred I feel this is a highly complex case requiring extensive working including EKG/ Rhythm strip, Xray/CT/US, Blood/urine lab work, repeat exams while in ED, and administration of strong opiates/narcotics for pain control, admission to hospital or close patient follow up. Diagnosis - COPD exacerbation , anemia, renal insufficiency, cocaine abuse transferred in serious condition Labs Test 10/31/19 21:45 10/31/19 23:00 White Blood Count 10.5 K/UL (4.8-10.8) Red Blood Count 3.55 M/UL (4.20-5.40) Hemoglobin 7.6 G/DL (12.0-16.0) Hematocrit 27.8 % (37.0-47.0) Mean Corpuscular Volume 78 FL (80-99) Mean Corpuscular Hemoglobin 21.5 PG (27.0-31.0) Mean Corpuscular Hemoglobin Concent 27.4 G/DL (32.0-36.0) Red Cell Distribution Width 22.8 % (11.6-14.8) Platelet Count 230 K/UL (150-450) Mean Platelet Volume 7.3 FL (6.5-10.1) Neutrophils (%) (Auto) % (45.0-75.0) Lymphocytes (%) (Auto) % (20.0-45.0) Monocytes (%) (Auto) % (1.0-10.0) Eosinophils (%) (Auto) % (0.0-3.0) Basophils (%) (Auto) % (0.0-2.0) Differential Total Cells Counted 100 Neutrophils % (Manual) 69 % (45-75) Lymphocytes % (Manual) 14 % (20-45) Monocytes % (Manual) 10 % (1-10) Eosinophils % (Manual) 7 % (0-3) Basophils % (Manual) 0 % (0-2) Band Neutrophils 0 % (0-8) Platelet Estimate Adequate Platelet Morphology Normal Hypochromasia 2+ Anisocytosis 2+ Microcytosis 1+ Prothrombin Time 10.0 SEC (9.30-11.50) Prothromb Time International Ratio 0.9 (0.9-1.1) Activated Partial Thromboplast Time 24 SEC (23-33) Sodium Level 140 MMOL/L (136-145) Potassium Level 4.4 MMOL/L (3.5-5.1) Chloride Level 101 MMOL/L (98-107) Carbon Dioxide Level 32 MMOL/L (21-32) Anion Gap 7 mmol/L (5-15) Blood Urea Nitrogen 29 mg/dL (7-18) Creatinine 1.5 MG/DL (0.55-1.30) Estimat Glomerular Filtration Rate 42.1 mL/min (>60) Glucose Level 99 MG/DL (74-106) Lactic Acid Level 1.50 mmol/L (0.4-2.0) Calcium Level 9.3 MG/DL (8.5-10.1) Total Bilirubin 0.4 MG/DL (0.2-1.0) Aspartate Amino Transf (AST/SGOT) 32 U/L (15-37) Alanine Aminotransferase (ALT/SGPT) 24 U/L (12-78) Alkaline Phosphatase 83 U/L (46-116) Troponin I 0.059 ng/mL (0.000-0.056) Pro-B-Type Natriuretic Peptide 961 pg/mL (0-125) Total Protein 9.4 G/DL (6.4-8.2) Albumin 3.5 G/DL (3.4-5.0) Globulin 5.9 g/dL Albumin/Globulin Ratio 0.6 (1.0-2.7) Urine Color Yellow Urine Appearance Clear Urine pH 5 (4.5-8.0) Urine Specific [place] 1.020 (1.005-1.035) Urine Protein 1+ (NEGATIVE) Urine Glucose (UA) Negative (NEGATIVE) Urine Ketones Negative (NEGATIVE) Urine Blood Negative (NEGATIVE) Urine Nitrite Negative (NEGATIVE) Urine Bilirubin Negative (NEGATIVE) Urine Urobilinogen 1 MG/DL (0.0-1.0) Urine Leukocyte Esterase Negative (NEGATIVE) Urine RBC 0-2 /HPF (0 - 2) Urine WBC 0-2 /HPF (0 - 2) Urine Squamous Epithelial Cells Many /LPF (NONE/OCC) Urine Bacteria Few /HPF (NONE) Urine Opiates Screen Negative (NEGATIVE) Urine Barbiturates Screen Negative (NEGATIVE) Phencyclidine (PCP) Screen Negative (NEGATIVE) Urine Amphetamines Screen Negative (NEGATIVE) Urine Benzodiazepines Screen Negative (NEGATIVE) Urine Cocaine Screen Positive (NEGATIVE) Urine Marijuana (THC) Screen Negative (NEGATIVE) EKG Diagnostic Results Rate: normal Rhythm: NSR ST Segments: no acute changes ASA given to the pt in ED: No Rhythm Strip Diag. Results EP Interpretation: yes Rhythm: NSR, no PVC's, no ectopy Chest X-Ray Diagnostic Results Chest X-Ray Diagnostic Results : Chest X-Ray Ordered: Yes # of Views/Limited/Complete: 1 View Indication: Shortness of Breath EP Interpretation: Yes Interpretation: no consolidation, no effusion, no pneumothorax, no acute cardiopulmonary disease, other - hyperinflated lungs Impression: Other - copd Electronically Signed by: Electronically signed by Brandin Michelle MD Last Vital Signs Date Time Temp Pulse Resp B/P (MAP) Pulse Ox O2 Delivery O2 Flow Rate FiO2 10/31/19 22:10 80 19 100 10/31/19 22:06 Simple Mask 5.0 10/31/19 22:06 97.5 154/100 Status: improved Disposition: XFER SHT-TRM HOSP Condition: Serious Brandin Michelle MD Oct 31, 2019 22:29
[2019-10-31 22:42] LABS: ALANINE AMINOTRANSFERASE 24 U/L (12-78); ALBUMIN 3.5 G/DL (3.4-5.0); ALBUMIN/GLOBULIN RATIO 0.6 (1.0-2.7); ALKALINE PHOSPHATASE 83 U/L (46-116); ASPARTATE AMINO TRANSFERASE 32 U/L (15-37); BILIRUBIN,TOTAL 0.4 MG/DL (0.2-1.0)
--- NOTE | 2019-10-31 23:00 | NUR ---
ED Nurse Note: urine collected; sent down to lab.
--- NOTE | 2019-10-31 23:01 | Diagnostic Imaging Report ---
EXAM: XR Chest, 1 View CLINICAL HISTORY: SOB TECHNIQUE: Frontal view of the chest. COMPARISON: No relevant prior studies available. FINDINGS: Lungs: Thick interstitial markings. No confluent consolidation. Pleural space: Unremarkable. No pneumothorax. Heart: Mild cardiomegaly. Mediastinum: Unremarkable. Bones/joints: No acute fracture. IMPRESSION: Thick interstitial markings. No confluent consolidation.
[2019-10-31 23:36] LABS: INR 0.9 (0.9-1.1)
[2019-10-31 23:40] LABS: APPEARANCE,URINE CLEAR; BILIRUBIN, URINE NEGATIVE (NEGATIVE); GLUCOSE, URINE (UA) NEGATIVE (NEGATIVE); KETONES,URINE NEGATIVE (NEGATIVE); LEUKOCYTE ESTERASE ,URINE NEGATIVE (NEGATIVE); NITRITE,URINE NEGATIVE (NEGATIVE); PH,URINE 5 (4.5-8.0); PROTEIN,URINE 1+ (NEGATIVE); UROBILINOGEN,URINE 1 MG/DL (0.0-1.0)
[2019-10-31 23:43] LABS: COLOR,URINE YELLOW
[2019-11-01] VITALS: BP 99/60
--- NOTE | 2019-11-01 00:33 | NUR ---
ED Nurse Note: report given to natalya marvin of [facility]. patient to be admitted to under the care of kulwinder macario.
[2019-11-01 01:57] VITALS: BP 140/77
--- NOTE | 2019-11-01 02:30 | NUR ---
ED Nurse Note: patient resting comfortably in bed with no acute distress. ao4. nad. vss. respirations even and unlabored; nasal canula in place 2lpm. patient aware of pending transfer; waiting for ems transport. provided patient with nourishment. will continue to monitor.
--- NOTE | 2019-11-01 02:49 | NUR ---
ED Nurse Note: report given to [facility]. patient stable for transfer. iv inact and patent. patient left with ems with all belongings.
[2019-11-01 02:50] VITALS: BP 140/77
== END 2019-11-01 02:53 | disposition short-term general hospital (02) ==
LOC: EMR 21:43
DX: J44.1 Chronic obstructive pulmonary disease with (acute) exacerbation (principal); D64.9 Anemia, unspecified; F14.10 Cocaine abuse, uncomplicated; N28.9 Disorder of kidney and ureter, unspecified; Z88.6 Allergy status to analgesic agent; I10 Essential (primary) hypertension
CPT/HCPCS: 36415; 71045; 80053; 80307; 81003; 83605; 83880; 84484; 85007; 85025; 85610; 85730; 86710; 86850; 86900; 86901; 87040; 93005; 96361; 96365; 96375; 99284; J1956; J2930; J7030; J7040

== ENCOUNTER 2020-04-08 21:44 | Emergency (ER) | payer MEDICARE, OTHER ==
[~2020-04-08] VITALS: Ht 162.6 cm; Wt 5.0 kg
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
[2020-04-08 22:00] VITALS: BP 124/76
[2020-04-08] MEDS ORDERED: Acetaminophen 500mg (ES) tab ORAL ONE (22:00)
[2020-04-08] MEDS ORDERED: Methocarbamol 750mg tab ORAL ONE (22:00)
[2020-04-08] MEDS ORDERED: HYDROcodone/Acetamin 5/325 tab ORAL ONE (22:15)
[2020-04-08] MEDS ORDERED: IBUPROFEN600 M1 ORAL (22:17)
[2020-04-08] MEDS ORDERED: HYDROCODON-ACE1 EA15 ORAL (22:17)
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
--- NOTE | 2020-04-08 22:34 | Diagnostic Imaging Report ---
EXAM: XR Chest, 1 View CLINICAL HISTORY: CP TECHNIQUE: Frontal view of the chest. COMPARISON: None FINDINGS: Lungs: There are probable nipple shadows within the lower lung zones.. No consolidation. Pleural space: Unremarkable. No pneumothorax. Heart: Unremarkable. No cardiomegaly. Mediastinum: Unremarkable. Bones/joints: Unremarkable. IMPRESSION: No acute cardiopulmonary process.
--- NOTE | 2020-04-08 22:35 | NUR ---
ER DISCHARGE NOTE: Patient is cleared to be discharged per ERMD, pt is aox4, on room air, with stable vital signs. pt was given dc and prescription instructions, pt was able to verbalize understanding, pt id band removed. pt is able to ambulate with steady gait. pt took all belongings.
== END 2020-04-08 22:36 | disposition home or self-care (01) ==
LOC: EMR 22:00
DX: S20.219A Contusion of unspecified front wall of thorax, initial encounter (principal); V43.62XA Car passenger injured in collision with other type car in traffic accident, initial encounter; Y92.410 Unspecified street and highway as the place of occurrence of the external cause; F17.200 Nicotine dependence, unspecified, uncomplicated; I10 Essential (primary) hypertension; J44.9 Chronic obstructive pulmonary disease, unspecified
CPT/HCPCS: 71045; 93005; 99283